=== PATIENT | female | born 1980 | race Caucasian/White ===

== ENCOUNTER 2016-08-22 16:03 | Inpatient (IN) | payer OTHER ==
[~2016-08-22] VITALS: Ht 185.4 cm; Wt 96.9 kg
[~2016-08-22 16:03] MED LIST: ASPI-973 PO; FOLI1TAB18 PO; IBUP-1827 PO; PNV1TABL9 PO
[2016-08-22 16:27] VITALS: BP 117/77; RESP 16; O2SAT 95
[2016-08-22 17:07] LABS: BASOPHILS % (AUTO) 0.1 % (0-3); EOSINOPHILS % (AUTO) 0 % (0-5); MONOCYTES % (AUTO) 6.3 % (4-12); Mean Corpuscular Hemoglobin 28.8 pg (27.0-35.0); Mean Corpuscular Volume 86.1 fL (81-100); NEUTROPHILS % (AUTO) 87.3 % (40-74); Platelet Count 335 bil/L (150-400)
[2016-08-22 17:29] LABS: Magnesium 1.6 mg/dL (1.6-2.6)
[2016-08-22] MEDS ORDERED: 0.9% Sodium Chloride 1,000 ML IV ONE ×2 (17:45→21:05)
[2016-08-22 17:59] LABS: APPEARANCE,URINE CLEAR (CLEAR,HAZY); COLOR,URINE DARK YELLOW (YELLOW); OCCULT BLOOD,URINE MODERATE (NEGATIVE); PH,URINE 5.5 (5.0-8.0); UROBILINOGEN,URINE NORMAL (NORMAL)
[2016-08-22 18:00] LABS: ICTOTEST,URINE POSITIVE (Negative)
[2016-08-22 18:02] VITALS: PULSE 108; RESP 18; O2SAT 98
--- NOTE | 2016-08-22 18:28 | ED.REPORT ---
HPI-Fever Date of Service Aug 22, 2016 ED Provider: Jarred Barahona MD Khloe is a 36 year old woman, currently 20wk 5 days gravid by Ultrasound, MTHFR, Developed chills last night while working at [employer], went home and continued to have chills, checked her temperature and was 101.3F oral. Contacted her Dr. Vang who said she needed to go to , while there they attempted to do a throat swab and she coughed up blood tinged sputum and patient reports that the attempt to get a throat swab had fank blood. Pt denies epistaxis. Has not had this before. Rt leg swelling greater than L leg over course of three weeks. Sore throat with odynophagia, some rhinorrhea, head ache since last night, No rashes, No dysuria. Has muscle aches all over. did not have flu shot this year. 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 Family History Mother had multiple blood clots, at 52. Father- DMII Smoking History Unknown if Ever Smoker Social History A1 as of 01/10/16 Other Social History: Good social support Ambulatory Status Independent Review of Systems Complete sys rev & neg: except as marked. Physical Exam General: Laying in bed, mildly uncomfortable HEENT: Normocephalic, atraumatic, EOMI grossly, oropharynx is obviously inflamed , unable to appreciate any lymphadenopathy in the cervical chains conjunctiva pink, mucous membranes moist, neck is supple. Cardiovascular: Tachycardic with regular rhythm, no clicks murmurs rubs, peripheral pulses 2/4 equal bilaterally Pulmonary: Clear to auscultation bilaterally, no W/R/R. Abdominal: Soft to palpation, bowel sounds present 4, no hepatosplenomegaly. Negative rebound. : Uterine fundus is palpable at level of umbilicus, heart rate 140s. No CVA tenderness Extremities: Bilateral lower extremity edema, no asymmetry, no tenderness. Neuro: Neurologically grossly intact, strength is equal bilaterally upper and lower extremities. MSK: Gait is normal, able to move extremities on their own volition, strength 5 out of 5 equal bilaterally to upper and lower extremities. Initial Vital Signs Vital Signs (First) Date Time Temp Pulse Resp B/P Pulse Ox O2 Delivery O2 Flow Rate FiO2 08/22/16 16:27 37.2 130 16 117/77 95 Room Air Initial VS: Reviewed, Vital signs abnormal (tachycardia) Interpretation & Diagnostics Bilateral duplex ultrasound lower extremities "no evidence of DVT of bilateral lower extremities." Lab Results Interpretation Result Diagram: 08/22/16 1658 08/22/16 1658 Test 08/22/16 16:58 08/22/16 17:37 White Blood Count 19.8th/mm3 (3.8-10.1) Red Blood Count 4.24mil/mm3 (3.90-5.20) Hemoglobin 12.2g/dL (12.0-15.6) Hematocrit 36.5% (35.0-46.0) Mean Corpuscular Volume 86.1fL (81-100) Mean Corpuscular Hemoglobin 28.8pg (27.0-35.0) Mean Corpuscular Hemoglobin Concent 33.4% (32.0-37.0) Red Cell Distribution Width 13.0% (12.3-15.4) Platelet Count 335bil/L (150-400) Neutrophils (%) (Auto) 87.3% (40-74) Lymphocytes (%) (Auto) 5.9% (14-46) Monocytes (%) (Auto) 6.3% (4-12) Eosinophils (%) (Auto) 0% (0-5) Basophils (%) (Auto) 0.1% (0-3) Sodium Level 133mEq/L (134-144) Potassium Level 4.2mEq/L (3.5-5.2) Chloride Level 99mEq/L (97-108) Carbon Dioxide Level 20mmol/L (18-29) Blood Urea Nitrogen 8mg/dL (6-20) Creatinine 0.73mg/dL (0.57-1.00) Estimat Glomerular Filtration Rate 128mL/min (>59) Glucose Level 92mg/dL (60-99) Lactic Acid Level 0.7mmol/L (0.4-2.0) Calcium Level 9.4mg/dL (8.5-10.1) Magnesium Level 1.6mg/dL (1.6-2.6) Total Bilirubin 0.3mg/dL (0.0-1.2) Aspartate Amino Transf (AST/SGOT) 19U/L (0-50) Alanine Aminotransferase (ALT/SGPT) 21U/L (0-32) Alkaline Phosphatase 66U/L (25-150) Total Protein 7.5g/dL (6.4-8.4) Albumin 3.5g/dL (3.4-5.0) Procalcitonin 0.10ng/mL (0.00-0.08) Hold Greene Top Tube Received (Received) Urine Color Dark yellow (YELLOW) Urine Appearance Clear (CLEAR,HAZY) Urine pH 5.5 (5.0-8.0) Urine Specific [place] 1.030 (1.003-1.035) Urine Protein Tracemg/dL (NEG,TRACE) Urine Glucose (UA) Negativemg/dL (NEGATIVE) Urine Ketones 40mg/dL (NEGATIVE) Urine Occult Blood Moderate (NEGATIVE) Urine Nitrite Negative (NEGATIVE) Urine Bilirubin Small (NEGATIVE) Urine Ictotest Positive (Negative) Urine Urobilinogen Normalmg/dL (NORMAL) Urine Leukocyte Esterase Trace (NEGATIVE) Urine RBC 11-50/hpf (0-2) Urine WBC 0-5/hpf (0-5) Urine Epithelial Cells Many/hpf (NONE-MOD) Urine Crystals None seen (NONE SEEN) Urine Bacteria Moderate/hpf (NONE-FEW) Urine Hyaline Casts None/lpf (NONE) Urine Granular Casts None seen (NONE SEEN) Urine Waxy Casts None seen (NONE SEEN) Urine Red Blood Cell Casts None seen (NONE SEEN) Urine White Blood Cell Casts None seen (NONE SEEN) Urine Mucus Present (None Seen) Urine Trichomonas None seen (NONE SEEN) Urine Yeast None (NONE SEEN) Urine Culture Reflexed Indicated Lab Results Interpretation: Urinary tract infection Hyponatremia Leukocytosis ECG Interpretation ECG Interpretation: Rate 118 Sinus tachycardia NC 139 QTC 459 No signs of acute infarct or ischemia. X-Ray Interpretation Xray Interpretation: IMPRESSION: No acute pulmonary process. Dictated by: Teressa Woodson M.D. on 08/22/2016 at 19:33 CT Chest Interpretation IMPRESSION: 1. Limited diagnostic exam secondary to injection timing. No central pulmonary embolism. Distal branches are unable to be evaluated. 2. Lungs are clear. Dictated by: Teressa Woodson M.D. on 08/22/2016 at 20:53 Interpretation / Wet Read by: Interpret - Radiologist Re-Eval/Medical Decision Med Decision/Clinical Course Patient was evaluated with concern for pulmonary embolism. Rapid strep and rapid flu and urgent care were negative, patient has no signs of hemoptysis here , she continues to be tachycardic, white count of nearly 20,000, urinalysis was suggestive urinary tract infection. CT angiogram of chest was suboptimal and cannot rule out peripheral pulmonary emboli, chest x-ray did not demonstrate any pneumonia or nodules. She continues to complain of having a sore throat, and head hurting which was relieved initially by Tylenol. Lower extremity ultrasound was performed and did not show any signs of DVT. Given her fever, elevated white count, urinalysis suggestive of infection, she was admitted for IV antibiotics and further evaluation for fever and leukocytosis. Consultation #1: Referral / Consult Name: Klaus Morris MD Consulted With: Hospitalist Tail Dogger: Accepts admit Consultation #2: Referral / Consult Name: Cheyanne Vang MD Consulted With: On-call physician Tail Dogger: Will see patient Note: OBGYN. Agrees with plan. Counseled Regarding: Diagnosis, Lab results, Need for admission Discharge & Departure Impression: Primary Impression: Urinary tract infection Urinary tract infection type: acute cystitis Hematuria presence: with hematuria Qualified Code: N30.01 - Acute cystitis with hematuria Additional Impressions: 20 weeks gestation of Hyponatremia Disposition: ADMITTED TO HOSPITAL Discharge Condition All VS Reviewed: Yes Condition: No Change Referrals: Roseanna Gibson (PCP) Attending Statement Seen and examined with Dr Briceno on 08/22. Agree with above. Do not feel further eval for PE is indicated at present given clear history of fever and infectious process as cause of tachycardia. copies to: Cheyanne Vang MD; Roseanna Gibson Noah M DO Aug 22, 2016 18:27 Jarred Barahona MD Aug 23, 2016 01:18
[2016-08-22 19:37] VITALS: PULSE 118; RESP 22; O2SAT 98
--- NOTE | 2016-08-22 19:38 | DRSVH ---
PROCEDURE: X-RAY CHEST, TWO VIEWS ([id number]) INDICATIONS: Hemoptysis TECHNIQUE: 2 views of the chest were acquired. COMPARISON: None. FINDINGS: Surgical changes and devices: None. Lungs and pleura: No pleural effusions or pneumothorax. Lungs are clear. Mediastinum: Mediastinal contours are normal. Heart size is normal. Bones and chest wall: No suspicious bony abnormalities. Soft tissues appear unremarkable. IMPRESSION: No acute pulmonary process. Dictated by: Teressa Woodson M.D. on 08/22/2016 at 19:33 Approved by: Teressa Woodson M.D. on 08/22/2016 at 19:37
[2016-08-22 20:52] VITALS: BP 121/72; PULSE 122; RESP 19; O2SAT 97
--- NOTE | 2016-08-22 21:01 | DRSVH ---
PROCEDURE: CT ANGIO CHEST PULMONARY EMBOLISM ([id number]) INDICATIONS: Tachycardia, Hemoptysis, , MTHFR mutation. TECHNIQUE: After the administration of intravenous contrast, 2 mm thick sections acquired from the pulmonary api wing to the posterior costophrenic angles. 3-dimensional maximum intensity projection (MIP) coronal a nd sagittal reformats were then acquired through the thorax. For radiation dose reduction, the follo wing was used: automated exposure control, adjustment of mA and/or kV according to patient size. COMPARISON: None. FINDINGS: Image quality: Injection timing is suboptimal for evaluation distal to the main pulmonary artery. Pulmonary arteries: Pulmonary arteries are normal in size, and demonstrate no intraluminal filling d efects to suggest central pulmonary embolism. Lungs and pleura: Lungs are clear. No pleural effusions or pneumothorax. Central and peripheral ai rways are patent. Mediastinum: Heart size is normal, without pericardial effusion. No mediastinal or hilar adenopathy . Thoracic aorta is normal in caliber and enhancement. Esophagus is normal in caliber, without hiat al hernia. Bones and chest wall: No suspicious bony lesions. Ribs and thoracic spine appear intact throughout. Thyroid gland is unremarkable as is. No axillary or supraclavicular adenopathy. Abdomen: Visualized upper abdominal solid organs appear normal in the early arterial phase of enhanc ement. IMPRESSION: 1. Limited diagnostic exam secondary to injection timing. No central pulmonary embolism. Distal branc hes are unable to be evaluated. 2. Lungs are clear. Dictated by: Teressa Woodson M.D. on 08/22/2016 at 20:53 Approved by: Teressa Woodson M.D. on 08/22/2016 at 20:59
[2016-08-22] MEDS ORDERED: Lactated Ringer's 1,000 ML IV ONE (21:05)
[2016-08-22] MEDS ORDERED: cefTRIAXone Inj 2,000 MG in Dextrose 5% Minibag Plus 50 ML IV ONE (21:15)
[2016-08-22] MEDS: Phenol 1.4% 177 mL Spray MUC_MEMBRM PRN (21:39)
[2016-08-22] MEDS: 0.9% Sodium Chloride 1,000 ML IV SCH (22:00)
[2016-08-22] MEDS ORDERED: 0.9% Sodium Chloride 1,000 ML IV SCH (22:07)
[2016-08-22] MEDS ORDERED: Polyethylene Glycol (PEG) 17 Gm Powder PO PRN (22:10)
[2016-08-22] MEDS ORDERED: Alum-Mag Hydrox-Simeth 30 mL Suspension PO PRN (22:10)
[2016-08-22] MEDS ORDERED: Ondansetron 2 mg/mL 2 mL Inj IVPUSH PRN (22:10)
[2016-08-22 22:42] VITALS: BP 121/72; PULSE 122; RESP 19; O2SAT 97
[2016-08-22 22:55] VITALS: BP 119/69; PULSE 117; RESP 16
--- NOTE | 2016-08-23 00:13 | NUR ---
Admit Pt admitted onto unit at 2250 via wheelchair from ED. Report given by MITCH Miranda. Pt A&Ox3, Pain 6/10 Headache but stated it was at a tolerable level. VSS with some tachycardia 116. Oriented pt to room, call light, etc.
[2016-08-23] MEDS ORDERED: Sodium Chloride LOK Flush 10 mL Syringe IVFLUSH SCH (00:30)
[2016-08-23] MEDS: 0.9% Sodium Chloride 1,000 ML IV SCH ×2 (01:27→03:53)
[2016-08-23] MEDS: Phenol 1.4% 177 mL Spray MUC_MEMBRM PRN ×2 (01:27→11:04)
--- NOTE | 2016-08-23 02:24 | PCM.HPMED ---
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 She states that she has felt very fatigued with increased low back pain for the past month or so, which she has been attributing to her . She states that she has had a sore throat for several days then last night developed a persistent cough, fever and chills. She contacted her ObGyn, Dr. Vang who referred her to Urgent Care. While at , an attempt was made to collect a throat swab when the patient coughed up blood tinged sputum. She denies prior episodes of hemoptysis or epistaxis and states that this has not happened since. Of note, she states that she is followed by [facility] at the [facility] due to her MTHFR gene mutation. However, other than a VSD noted on an recent ultrasound her has thus far been uneventful. She does report increased lower extremity swelling in the past few weeks that she states is worse on the left, chest pain with coughing, headache, and generalized malaise. She denies dysuria, hematuria, abdominal pain, nausea, vomiting, diarrhea or constipation. In the ED, vitals temp 37.2, BP 117/77, pulse 130, RR 16, SpO2 95% on room air. Labs: wbc 19.8, H/H 12.2/36.5, plts 335, sodium 133, potassium 4.2, chloride 99 , bicarb 20, BUN 8, creatinine 0.73, serum glucose 92, lactic acid 0.7. ECG showing sinus tachycardia with a rate of 118 and no signs of acute ischemia. CXR negative for acute process, CT chest with no evidence of PE however it was a suboptimal study cannot rule out peripheral pulmonary emboli . US of lower extremities with no evidence of DVT. She received 1L bolus of LR and 1L boluses of normal saline x2. Started on IV ceftriaxone. Review of Systems: A comprehensive review of systems was conducted with the patient and found to be negative except as above in the History of Present Illness. Allergies Coded Allergies: No Known Allergies (Verified , 01/30/16) Home Medications Aspirin 81 MG PO DAILY Folic Acid 1 MG PO DAILY Pnv Cmb#21/Iron/Folic Acid 1 EACH PO DAILY Ibuprofen 600 MG PO QID PRN For Pain PMH MTHFR gene mutation, clotting disorder . Surgical History Cholecystectomy Rhinoplasty for deviated septum Family History Mother had multiple blood clots, at 52. Father- DMII Social History Hx Alcohol Use: Yes Hx Substance Use: No Smoking Status: Never Smoker Living Arrangement: with Family Exam Vital Signs Vital Sign - Last Date Time Temp Pulse Resp B/P Pulse Ox O2 Delivery O2 Flow Rate FiO2 08/22/16 20:52 36.9 122 19 121/72 97 Room Air Exam General: Well-developed, well-nourished female lying in bed. in no acute distress. HEENT: Normocephalic, atraumatic, EOMI grossly, oropharynx erythematous without exudates, submandibular tenderness to palpation, no obvious lymphadenopathy, mucous membranes moist. Neck: Non-tender, no JVD/bruits or lymphadenopathy Cardiovascular: Tachycardic with regular rhythm, no murmurs, rubs, or gallops appreciated Pulmonary: Clear to auscultation bilaterally with no crackles, wheezes, or rhonchi. Normal respiratory effort. Abdomen: Bowel tones present. Soft, nontender, nondistended. No hepatosplenomegaly or masses appreciated. Extremities: Distal pulses equal/intact bilaterally, no cyanosis and trace non- pitting edema to just below the knee. Skin: Normal temperature, turgor, and texture; no rashes or ulcerations. Neurological: CN II-XII grossly intact. Normal muscle strength, tone, and bulk. No known gait impairment. Psychiatric: Normal mood and affect. Alert and oriented to person, place, and time. Lab and Diagnostics Labs Laboratory Tests Test 08/22/16 16:58 08/22/16 17:37 White Blood Count 19.8th/mm3 (3.8-10.1) Red Blood Count 4.24mil/mm3 (3.90-5.20) Hemoglobin 12.2g/dL (12.0-15.6) Hematocrit 36.5% (35.0-46.0) Mean Corpuscular Volume 86.1fL (81-100) Mean Corpuscular Hemoglobin 28.8pg (27.0-35.0) Mean Corpuscular Hemoglobin Concent 33.4% (32.0-37.0) Red Cell Distribution Width 13.0% (12.3-15.4) Platelet Count 335bil/L (150-400) Neutrophils (%) (Auto) 87.3% (40-74) Lymphocytes (%) (Auto) 5.9% (14-46) Monocytes (%) (Auto) 6.3% (4-12) Eosinophils (%) (Auto) 0% (0-5) Basophils (%) (Auto) 0.1% (0-3) Sodium Level 133mEq/L (134-144) Potassium Level 4.2mEq/L (3.5-5.2) Chloride Level 99mEq/L (97-108) Carbon Dioxide Level 20mmol/L (18-29) Blood Urea Nitrogen 8mg/dL (6-20) Creatinine 0.73mg/dL (0.57-1.00) Estimat Glomerular Filtration Rate 128mL/min (>59) Glucose Level 92mg/dL (60-99) Lactic Acid Level 0.7mmol/L (0.4-2.0) Calcium Level 9.4mg/dL (8.5-10.1) Magnesium Level 1.6mg/dL (1.6-2.6) Total Bilirubin 0.3mg/dL (0.0-1.2) Aspartate Amino Transf (AST/SGOT) 19U/L (0-50) Alanine Aminotransferase (ALT/SGPT) 21U/L (0-32) Alkaline Phosphatase 66U/L (25-150) Total Protein 7.5g/dL (6.4-8.4) Albumin 3.5g/dL (3.4-5.0) Procalcitonin 0.10ng/mL (0.00-0.08) Hold Greene Top Tube Received (Received) Urine Color Dark yellow (YELLOW) Urine Appearance Clear (CLEAR,HAZY) Urine pH 5.5 (5.0-8.0) Urine Specific [place] 1.030 (1.003-1.035) Urine Protein Tracemg/dL (NEG,TRACE) Urine Glucose (UA) Negativemg/dL (NEGATIVE) Urine Ketones 40mg/dL (NEGATIVE) Urine Occult Blood Moderate (NEGATIVE) Urine Nitrite Negative (NEGATIVE) Urine Bilirubin Small (NEGATIVE) Urine Ictotest Positive (Negative) Urine Urobilinogen Normalmg/dL (NORMAL) Urine Leukocyte Esterase Trace (NEGATIVE) Urine RBC 11-50/hpf (0-2) Urine WBC 0-5/hpf (0-5) Urine Epithelial Cells Many/hpf (NONE-MOD) Urine Crystals None seen (NONE SEEN) Urine Bacteria Moderate/hpf (NONE-FEW) Urine Hyaline Casts None/lpf (NONE) Urine Granular Casts None seen (NONE SEEN) Urine Waxy Casts None seen (NONE SEEN) Urine Red Blood Cell Casts None seen (NONE SEEN) Urine White Blood Cell Casts None seen (NONE SEEN) Urine Mucus Present (None Seen) Urine Trichomonas None seen (NONE SEEN) Urine Yeast None (NONE SEEN) Urine Culture Reflexed Indicated Microbiology 08/22/16 Blood Culture, Received Pending 08/22/16 Urine Culture, Received Pending Result Diagram: 08/22/16 1658 08/22/16 1658 X-Rays, CTs and MRIs X-RAY CHEST, TWO VIEWS IMPRESSION: No acute pulmonary process. Dictated by: Teressa Woodson M.D. on 08/22/2016 at 19:33 Approved by: Teressa Woodson M.D. on 08/22/2016 at 19:37 CT ANGIO CHEST PULMONARY EMBOLISM IMPRESSION: 1. Limited diagnostic exam secondary to injection timing. No central pulmonary embolism. Distal branches are unable to be evaluated. 2. Lungs are clear. Dictated by: Teressa Woodson M.D. on 08/22/2016 at 20:53 Approved by: Teressa Woodson M.D. 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 Admitted for further evaluation and management of sepsis secondary to UTI. 1. Sepsis, poa. Active -meets criteria with: 37.8C, HR 130, wbc 19.8 and suspected urinary source of infection. -sinus tachycardia on ECG, normal CXR and urinalysis consistent with infection. -lactic acid wnl, procalcitonin mildly elevated 0.10 -rapid strep/rapid flu negative at Urgent Care. -in the ED: s/p 1L bolus of LR, 1L bolus NSx2, 2g IV ceftriaxone -blood and urine cultures, pending -continue IVFs, ceftriaxone 2. Acute Urinary tract Infection, poa. Active. -UA findings consistent with infection -urine culture, pending -continue IVFs, antibiotics 3. Suspicion for Pulmonary embolism and DVT, poa. -pt reports L > R lower extremity swelling and one episode of hemoptysis. -CT angio was negative for PE, but considered suboptimal study due to timing of injection of contrast. -US of b/l lower extremities, negative for DVT. -continue home aspirin -DVT prophylaxis, subq heparin -due to suboptimal study, consider repeat CT angio for recurrent hemoptysis or persistent tachycardia despite fluid resuscitation. 4. Hx of MTHFR gene mutation, poa. Ongoing -mutation associated with hyperhomocysteinemia, which is a risk factor for VTE but more commonly associated with recurrent loss. -pt is 20wks , normal ultrasound in ED, Wafer Machine Operator aware and plan to see tomorrow -CT angio and lower ext US, as above. -continue home aspirin, folic acid and vitamins 5. Pharyngitis, poa. Active -rapid strep swab reportedly negative at Urgent Care -likely viral -continue supportive therapy -recommend outpatient follow as needed. PRN: Acetaminophen-fever/headache/mild/moderate pain Antiemetics, as needed Bowel regimen, as needed. Disposition: Patient admitted under observation status with expected length of stay < 2 midnights for severity of present symptoms and risk for adverse event. Pain Evaluation: Adequate Pain Control GI Prophylaxis: Not indicated VTE Prophylaxis Indicated: Meets Criteria for Anticoag Therapy VTE Prophylaxis: Sub-Q Heparin (Unfractionated) Resuscitation Status: CPR: Attempt Resuscitation Attending Statement The patient was seen and examined together with Dr. Lamas on 08/22 and I agree with the history, exam and plan as outlined in the note above. Nelly Lamas DO Aug 22, 2016 22:05 Klaus Morris MD Aug 23, 2016 06:17
[2016-08-23 03:47] VITALS: BP 115/64; PULSE 108; RESP 16; O2SAT 95
--- NOTE | 2016-08-23 05:14 | NUR ---
Temp Pt fluctuated between hot and cold throughout night, removing all blankets, then needing warm blankets. Throughout this time, she did not present with fever or sweating or clamminess of skin.
[2016-08-23 05:36] VITALS: PULSE 91
--- NOTE | 2016-08-23 06:28 | NUR ---
Chest Pain At 0604 pt c/o mid sternal chest pain rating 5-6 /10, SR at 88 per is technician, 12 Lead obtained showing Sinus Rhythm at 90, vitals taken Bp at 106/66, HR 89, 02 sats 99% on room air, given PRN Maalox, [address] Morris with order for one time Morphine 1mg, given, awaiting result at this time, continue to monitor.
[2016-08-23 06:42] LABS: BASOPHILS % (AUTO) 0.1 % (0-3); EOSINOPHILS % (AUTO) 0.3 % (0-5); MONOCYTES % (AUTO) 8.9 % (4-12); Mean Corpuscular Hemoglobin 28.7 pg (27.0-35.0); NEUTROPHILS % (AUTO) 75.8 % (40-74); Platelet Count 267 bil/L (150-400)
--- NOTE | 2016-08-23 06:42 | NUR ---
Morphine Response Pt reported feeling "drugged" immediately after morphine 1mg administered. Chest pain relieved, as well as headache and flank pain gone. Encouraged deep breathing. Monitored Vitals staying stable at BP 106/69 and HR 90. Keeping pt in bed until feeling steady, 1 person asst for next time out of bed.
[2016-08-23 08:00] VITALS: PULSE 93
[2016-08-23 08:30] VITALS: BP 112/74; PULSE 98; RESP 18; O2SAT 96
[2016-08-23] MEDS: Multivit-Miner-Folic Acid-Iron Tablet PO SCH (08:30)
--- NOTE | 2016-08-23 08:44 | DRSVH ---
PROCEDURE: US VENOUS LEG DUPLEX BILATERAL INDICATIONS: Hypercoag mutation, Tachycardic, , LE conchis TECHNIQUE: Real-time imaging, as well as color and pulse Doppler interrogation, were performed of the deep veins of both legs from the inguinal ligament to the popliteal fossa. COMPARISON: None. FINDINGS: The deep veins are normally compressible, and free of intraluminal thrombus. Color and pu lse Doppler demonstrate normal phasic intravascular flow. There is normal augmentation response to d istal compression maneuver. IMPRESSION: No deep venous thrombosis identified within either the left or right lower extremities. Dictated by: Morris NAQVI Interpreted: Flora eD León MD on 08/23/2016 at 8:43 Transcribed by: DALE on 08/23/2016 at 8:44 Approved by: Flora De León M.D. on 08/23/2016 at 9:33
[2016-08-23 12:45] VITALS: BP 112/70; PULSE 103; RESP 16; O2SAT 95
--- NOTE | 2016-08-23 14:05 | PCM.PNMED ---
Subjective Date of Service Aug 23, 2016 Subjective Patient was seen and examined at bedside today. Patient denies any shortness of breath, nausea, vomiting, diarrhea. Patient reports musculoskeletal chest pain. Patient reports dysuria but states that it has improved since admission. Overnight events: None Exam Vital Signs Vital Sign - Last Date Time Temp Pulse Resp B/P Pulse Ox O2 Delivery O2 Flow Rate FiO2 08/23/16 12:45 36.7 103 16 112/70 95 Room Air Intake and Output 08/22/16 08/22/16 08/23/16 Cumulative From/Thru 15:00 23:00 07:00 08/22/16 16:27 - 08/23/16 06:38 Intake Total 2000 ml 2000 ml Output Total 1900 ml 1900 ml Balance 2000 ml -1900 ml 100 ml Intake IV Total 2000 ml 2000 ml Output Urine Total 1900 ml 1900 ml Exam Physical Exam: GEN: Patient was awake, alert, responding appropriately to questions HEENT: Pupils equal round and reactive to light, extraocular eye muscles intact , Neck soft supple, trachea midline, nomocephalic/atraumatic CV: +S1/S2, regular rate and rhythm, no murmurs auscultated Respiratory: CTAB, no wheezes, rales, rhonchi GI: +bowel sounds x4, soft, compressible, nontender to palpation EXT: no clubbing, cyanosis, edema Neuro: Cranial nerves II-XII grossly intact Muscular skeletal: Right inhaled rib 4-6 Psych: mood and affect were appropriate IVs and Medications Medications Reviewed: Medications were reviewed in detail Lab and Diagnostics Result Diagram: 08/23/16 0610 08/23/16 0610 X-Rays, CTs and MRIs X-RAY CHEST, TWO VIEWS IMPRESSION: No acute pulmonary process. Dictated by: Teressa Woodson M.D. on 08/22/2016 at 19:33 Approved by: Teressa Woodson M.D. on 08/22/2016 at 19:37 CT ANGIO CHEST PULMONARY EMBOLISM IMPRESSION: 1. Limited diagnostic exam secondary to injection timing. No central pulmonary embolism. Distal branches are unable to be evaluated. 2. Lungs are clear. Dictated by: Teressa Woodson M.D. on 08/22/2016 at 20:53 Approved by: Teressa Woodson M.D. 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 Admitted for further evaluation and management of sepsis secondary to UTI. Sepsis secondary to UTI, present on admission -Patient meets sepsis criteria 37.8C, HR 130, wbc 19.8 on admission -Rapid flu negative at urgent care -Blood cultures pending -UA positive for infection -Urine culture currently no growth -Continue IV ceftriaxone Suspicion for Pulmonary embolism and DVT, poa. -CT angio was negative for PE, but considered suboptimal study due to timing of injection of contrast. -US of b/l lower extremities, negative for DVT. -Continue home aspirin Hx of MTHFR gene mutation, poa. Ongoing -Mutation associated with hyperhomocysteinemia, which is a risk factor for VTE but more commonly associated with recurrent loss. -CT angio and lower ext US, as above. 20 weeks gestation -Normal ultrasound in ED -MARINE ELECTRICIAN consulted -continue home aspirin, folic acid and vitamins Pharyngitis, poa. Active -rapid strep swab reportedly negative at Urgent Care, likely viral -continue supportive therapy -recommend outpatient follow as needed. Somatic dysfunction of the rib -Patient was complaining of chest pain secondary to rib 4 through 6 inhalation somatic dysfunction -Patient responded well to OMT with significant decrease in pain with BLT PRN: Acetaminophen-fever/headache/mild/moderate pain Antiemetics, as needed Bowel regimen, as needed. Disposition: Patient is currently progressing well and will most likely be discharged home tomorrow. GI Prophylaxis: Not indicated VTE Prophylaxis: Sub-Q Heparin (Unfractionated) Resuscitation Status: CPR: Attempt Resuscitation Shannon Guy DO Aug 23, 2016 14:05 Disposition: Patient admitted under observation status with expected length of stay < 2 midnights for severity of present symptoms and risk for adverse event. GI Prophylaxis: Not indicated VTE Prophylaxis: Sub-Q Heparin (Unfractionated) Resuscitation Status: CPR: Attempt Resuscitation Shannon Guy DO Aug 23, 2016 14:05
--- NOTE | 2016-08-23 16:45 | NUR ---
FHTs 162 at 1640 hrs. FBC RN here to check FHT.
--- NOTE | 2016-08-23 16:46 | NUR ---
Shift note Patient still complains of a sore throat. Did have a headache of 8/10 pain which resolved with Tylenol. FHTS to be done Q day. Voiding. I/V fluids Dc'd as patient is taking in adequate PO per MD orders.
[2016-08-23 20:30] VITALS: BP 103/60; PULSE 85; RESP 16; O2SAT 98
[2016-08-23] MEDS ORDERED: cefTRIAXone Inj 2,000 MG in Dextrose 5% Minibag Plus 50 ML IV SCH (21:00)
[2016-08-24 02:00] VITALS: BP 107/67; PULSE 85; RESP 16; O2SAT 97
--- NOTE | 2016-08-24 04:45 | NUR ---
Shift Note Assumed pt care at 1900, pt continues with intermittent IV ABO, SL otherwise, pt denies pain/discomfort, qhrly checks done, call light in reach.
[2016-08-24 06:00] VITALS: BP 107/69; PULSE 82; RESP 16; O2SAT 96
[2016-08-24 07:19] LABS: Mean Corpuscular Hemoglobin 28.7 pg (27.0-35.0); Mean Corpuscular Volume 87.3 fL (81-100)
--- NOTE | 2016-08-24 07:37 | NUR ---
Social Work: Screen D: Per EMR review, pt is a 36 year old female admitted for UTI, pyelonephritis. Pt is [facility]. PCP is OMAR Arias. NOK is pt's spouse, Shaji Millan. Advanced directives completed and on file. Readmit score is low, 0/8. Pt is a resident of [place] and lives with her . Pt is I with ADLs and has been I during admission. Pt is 20 weeks . OB is following for management of fetus. A: Pt who is I at baseline. P: Anticipate pt to discharge home with no social work needs; UTILITY SYSTEM OPERATOR to continue to follow if needs arise. AMAN Mack
[2016-08-24 08:00] VITALS: PULSE 93
[2016-08-24] MEDS: Multivit-Miner-Folic Acid-Iron Tablet PO SCH (08:38)
[2016-08-24 08:45] VITALS: BP 104/67; PULSE 93; RESP 16; O2SAT 95
--- NOTE | 2016-08-24 10:26 | PCM.CONSUR ---
Subjective Date of Service: Aug 24, 2016 History of Present Illness Ms. 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 Her right leg was more swollen than her left leg. She originally was seen at Urgent Care where they did a throat swab, and the rapid Strep test was negative. She coughed up light pink sputum after the throat swab. She was also tachycardic in the 120s, so she was sent to the emergency department. In the emergency department, her heart rate increased to 135 bpm. She had further work up for sepsis and possible PE. CT angiogram chest did not show evidence of a PE and bilateral leg ultrasound did not show evidence of a DVT. Urinalysis was concerning for a UTI. She was started on antibiotics. Her is complicated by MTHFR gene mutation, positive SSA antibody, and advanced maternal age. She is being followed by maternal medicine. labs: blood type A+, varicella and rubella immune, RPR and HIV nonreactive, negative hepatitis C, gonorrhea, and chlamydia, Pap smear negative , TSH within normal limits Today, she complains of mild bilateral flank pain but did have similar pain with previous pregnancies. She does not have fever, chills, nasal congestion, chest pain, dyspnea, nausea, vomiting, diarrhea, or dysuria. Her throat is no longer sore. She has an occasional non-productive cough. Her leg swelling has improved greatly. She can feel the baby move frequently. She states that they heard heart tones yesterday. No leakage of fluid. Reason for Consultation 20 weeks 4 days gestation Allergy Allergies: Coded Allergies: No Known Allergies (Verified , 01/30/16) Medications Aspirin (Aspirin) 81 Mg Tablet 81 MG PO DAILY (Reported) Last Taken: 81 MG on 08/22/16 0900 Cephalexin (Keflex) 500 Mg Capsule 500 MG PO DIRECTED Take 1 capsule twice per day for 7 days and then 1 capsule once per day thereafter. Prescribed by: GUILLERMINA HAYNES DO Folic Acid (Folic Acid) 1 Mg Tablet 1 MG PO DAILY (Reported) Last Taken: 1 MG on 08/22/16 0900 Ibuprofen (Ibuprofen) 600 Mg Tablet 600 MG PO QID PRN PRN For Pain Prescribed by: DIAMOND SALEEM MD Last Taken: 600 MG on 08/22/16 Pnv Cmb#21/Iron/Folic Acid ( Complete Caplet) 1 Each Tablet 1 EACH PO DAILY (Reported) Last Taken: 1 TABLET on 08/22/16 0900 Past Surgical History Surgeries: Yes (Gallbladder 2008, Rhinoplasty at 15) Patient/Family Past Surgical: Positive for:: Accept Blood Products?, Denies:: Anesthesia Reactions, Blood Transfusions Social History Hx Alcohol Use: Yes Hx Substance Use: No Hx Tobacco Use: No PMH HEENT History History of ENT Problems?: No Cardiovascular History Cardiovascular History: Positive for:: Edema (During ) Denies:: Cardiac Surgery Chest Pain Congestive Heart Failure Heart Murmur Hypertension Irregular Heartbeat Pacemaker Thrombophlebitis Respiratory History of Respiratory Problem: No Respiratory History: Denies:: Tuberculosis Neurological History Neurological History: Positive for:: Headaches Denies:: Alzheimer's Disease CVA Dementia Parkinson's Disease Seizures Gastrointestinal History HX of GI Problems?: Yes Gastrointestinal History: Positive for:: Heartburn Denies:: Diverticulitis Gastroesphageal Reflux Gastrointestinal Bleeding Hepatitis Hiatal Hernia Rectal Bleeding Genitourinary History Other Pertinent History?: History of genital herpes with one outbreak Female/Male History Reproductive History Female: Positive for: Currently ? (yes) Musculoskeletal History Hx Musculoskeletal Problems?: Yes Musculoskeletal History: Positive for:: Back Injury (Lumbar pain) Denies:: Joint Replacement Musculoskeletal Trauma Psycho Social History Hx of Psycho/Social Problems?: Yes Psycho Social History: Positive for:: Anxiety Hx Depression Denies:: Bipolar Disorder Suicide Attempt Other History Hx Any Other Health Problems?: Yes (MTHFR gene mutation, positive SSA antibody) Other History: Positive for:: Hospitalization Denies:: Cancer Thyroid Disease Diabetes: No Social History Hx Alcohol Use: YesHx Substance Use: No Smoking Status: Never Smoker Living Arrangement: with Family Family History PMH Family Member: Mother (MTHFR gene mutation and blood clots) Sibling(s) (MTHFR gene mutation carriers) Objective Exam Vital Signs & I/O Vital Sign- Last 8 Hours Date Time Temp Pulse Resp B/P Pulse Ox O2 Delivery O2 Flow Rate FiO2 08/24/16 06:00 36.9 82 16 107/69 96 Room Air 08/24/16 02:00 37.0 85 16 107/67 97 Room Air Intake and Output- Last 8 Hour 08/24/16 Cumulative From/Thru 07:00 08/22/16 16:27 - 08/24/16 04:25 Intake Total 405 ml 2405 ml Output Total 650 ml 3250 ml Balance -245 ml -845 ml Intake Oral 350 ml 350 ml IV Total 55 ml 2055 ml Output Urine Total 650 ml 3250 ml Lab & Micro Results Laboratory Tests Test 08/23/16 10:48 08/24/16 06:45 Troponin T 0.010ug/L (0.0-0.011) White Blood Count 9.3th/mm3 (3.8-10.1) Red Blood Count 3.62mil/mm3 (3.90-5.20) Hemoglobin 10.4g/dL (12.0-15.6) Hematocrit 31.6% (35.0-46.0) Mean Corpuscular Volume 87.3fL (81-100) Mean Corpuscular Hemoglobin 28.7pg (27.0-35.0) Mean Corpuscular Hemoglobin Concent 32.9% (32.0-37.0) Red Cell Distribution Width 13.1% (12.3-15.4) Platelet Count 271bil/L (150-400) Procalcitonin 0.09ng/mL (0.00-0.08) Microbiology 08/22/16 Blood Culture - Preliminary, Resulted NO GROWTH AFTER 24 HOURS 08/22/16 Urine Culture - Final, Complete Mixed Urogenital Yumi Result Diagram: 08/24/16 0645 08/23/16 0610 Review of Systems: Constitutional: Negative, except as otherwise mentioned in the history above. Ophthalmologic: Negative, except as otherwise mentioned in the history above. Cardiovascular: Negative, except as otherwise mentioned in the history above. Respiratory: Negative, except as otherwise mentioned in the history above. Gastrointestinal: Negative, except as otherwise mentioned in the history above. Genitourinary: Negative, except as otherwise mentioned in the history above. Musculoskeletal: Negative, except as otherwise mentioned in the history above. Neurological: Negative, except as otherwise mentioned in the history above. Psychiatric: Negative, except as otherwise mentioned in the history above. Hematologic/Lymphatic: Negative, except as otherwise mentioned in the history above. Allergic/Immunologic: Negative, except as otherwise mentioned in the history above. H&P Surgical Exam Exam General: Alert, Oriented X3, Cooperative, No Acute Distress HEENT: Within normal limits & unremarkable, EOMI, Other (Bilateral tender submandibular lymphadenopathy, mild pharyngeal erythema with 1+ tonsils bilaterally without exudates) Respiratory: Clear to Auscultation Cardiac: Exam Unremarkable, Regular Rate/Rhythm, No Murmurs/Rubs/Gallops, No C/ O Chest Pain Abdomen: Normal bowel sounds, Other (Gravid, uterine fundus is at about 1 cm above the umbilicus) Additional Information Extremities: Trace bilateral ankle edema Assessment & Plan Assessment 36 y/o woman at 20 weeks 4 days gestation with EDI 01/07/17 based on LMP , with a 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 She is followed by M. 20 weeks 4 days gestation - heart tones 162 bpm at 16:40 on 08/23/16 - movement is normal and no leakage of fluid -Continue care visits and following with M after discharge -Continue home aspirin, folic acid, and vitamins -OK to discharge home since WBC is now within normal limits and no longer tachycardic Sepsis secondary to UTI -Blood cultures show no growth to-date -UA positive for infection and urine culture grew mixed normal yumi -WBC improved today and is within normal limits -Recommend discontinuing IV antibiotics and transition to oral antibiotics for discharge. Consider discharging on Keflex 500 mg BID for 7 days and then Keflex 500 mg once daily thereafter. 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 -CT angio and lower ext US, as above. -Continue to follow with MFM as an outpatient Suspicion for Pulmonary embolism and DVT -CT angio was negative for PE, but considered suboptimal study due to timing of injection of contrast. Based on fever and elevated WBC, likely tachycardia was secondary to infection. -US of b/l lower extremities, negative for DVT. -Continue home aspirin VTE Prophylaxis: Sub-Q Heparin (Unfractionated) VTE Mechanical Devices: Intermittant Pneumatic CD Resuscitation Status: CPR: Attempt Resuscitation Attending Statement: The patient was seen and examined together with Guillermina Shields DO on and I agree with the history, exam and plan as outlined in the note above. Guillermina Haynes DO Aug 24, 2016 09:29 Cheyanne Vang MD Aug 30, 2016 19:21
[2016-08-24] MEDS ORDERED: CEPH-512 PO (10:47)
--- NOTE | 2016-08-24 11:38 | PCM.DIMED ---
Discharge Instructions Date of Service Aug 24, 2016 Dates of Hospitalization Aug 22, 2016 at 22:32 Discharge Diagnosis Discharge Diagnosis Sepsis secondary to UTI Chest pain secondary to rib somatic dysfunction Suspicion for PE/DVT ruled out History of MTHFR Rafal mutation Pharyngitis Diet Heart Healthy Activity No restrictions Call your provider Fever or Chills, Shortness of breath, Bleeding, Chest pain, Vomitting, Excessive diarrhea, Weakness (unilateral) Patient Instructions You have been prescribed Keflex and it has been recommended by AIRCRAFT REFUELER that you should take this medication twice a day for the remainder of your . Please make a follow-up appointment with your AIRCRAFT REFUELER and your primary care provider for further follow-up Follow-up Provider: Cheyanne Vang MD Follow-up with PCP in: 1 week (if an appointment has not really been made please call to schedule an appointment) Provider: Roseanna Gibson Follow-up in: 1 week (if an appointment has not already been made please call to schedule an appointment) Shannon Guy DO Aug 24, 2016 11:38
--- NOTE | 2016-08-24 11:40 | PCM.DC.MED ---
Discharge Summary Date of Service Aug 24, 2016 Dates of Hospitalization Date of Hospital Admission Aug 22, 2016 at 22:32 Date of Discharge: Aug 24, 2016 Providers: Admitting Physician: Klaus Morris MD Primary Care Physician: Roseanna Gibson Attending Physician: Klaus Morris MD Diagnosis at Time of Discharge Diagnosis at Time of Discharge Sepsis secondary to UTI Chest pain secondary to rib somatic dysfunction Suspicion for PE/DVT ruled out History of MTHFR Rafal mutation Pharyngitis Procedures XRay, CTs & MRIs X-RAY CHEST, TWO VIEWS IMPRESSION: No acute pulmonary process. Dictated by: Teressa Woodson M.D. on 08/22/2016 at 19:33 Approved by: Teressa Woodson M.D. on 08/22/2016 at 19:37 CT ANGIO CHEST PULMONARY EMBOLISM IMPRESSION: 1. Limited diagnostic exam secondary to injection timing. No central pulmonary embolism. Distal branches are unable to be evaluated. 2. Lungs are clear. Dictated by: Teressa Woodson M.D. on 08/22/2016 at 20:53 Approved by: Teressa Woodson M.D. 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 She states that she has felt very fatigued with increased low back pain for the past month or so, which she has been attributing to her . She states that she has had a sore throat for several days then last night developed a persistent cough, fever and chills. She contacted her ObGyn, Dr. Vang who referred her to Urgent Care. While at , an attempt was made to collect a throat swab when the patient coughed up blood tinged sputum. She denies prior episodes of hemoptysis or epistaxis and states that this has not happened since. Of note, she states that she is followed by [facility] at the [facility] due to her MTHFR gene mutation. However, other than a VSD noted on an recent ultrasound her has thus far been uneventful. She does report increased lower extremity swelling in the past few weeks that she states is worse on the left, chest pain with coughing, headache, and generalized malaise. She denies dysuria, hematuria, abdominal pain, nausea, vomiting, diarrhea or constipation. In the ED, vitals temp 37.2, BP 117/77, pulse 130, RR 16, SpO2 95% on room air. Labs: wbc 19.8, H/H 12.2/36.5, plts 335, sodium 133, potassium 4.2, chloride 99 , bicarb 20, BUN 8, creatinine 0.73, serum glucose 92, lactic acid 0.7. ECG showing sinus tachycardia with a rate of 118 and no signs of acute ischemia. CXR negative for acute process, CT chest with no evidence of PE however it was a suboptimal study cannot rule out peripheral pulmonary emboli . US of lower extremities with no evidence of DVT. She received 1L bolus of LR and 1L boluses of normal saline x2. Started on IV ceftriaxone. Hospital Course 36 y/o female, currently 20wks , with a history of an inherited thrombophilia disorder due to a MTHFR gene mutation who was referred to the ED from Urgent Care after an episode of hemoptysis. Admitted for further evaluation and management of sepsis secondary to UTI. Patient was admitted as she met sepsis criteria secondary to UTI. The patient responded well to IV ceftriaxone. MONEY EXAMINER was consulted and did not find any abnormalities at this time other than the already diagnosed VSD. It is felt that the patient should continue on Keflex twice a day for the rest of the as discussed with Dr. Tapia rotating with MONEY EXAMINER. The patient was given a note for work until Saturday after the patient has a follow-up appointment with her PCP. Patient has been encouraged to follow up also with her MONEY EXAMINER. Upon admission there were some significant concerns that the patient may have a DVT. As this patient has a significant family history of mother dying from a DVT a CT angiogram and ultrasound of the lower extremities were performed and found to be negative for any signs of DVT or PE.. The patient is being discharged home in stable condition Please see below for hospital course: Sepsis secondary to UTI, present on admission -Patient meets sepsis criteria 37.8C, HR 130, wbc 19.8 on admission -Rapid flu negative at urgent care -Blood cultures pending -UA positive for infection -Urine culture currently no growth -Continue IV ceftriaxone Suspicion for Pulmonary embolism and DVT, poa. -CT angio was negative for PE, but considered suboptimal study due to timing of injection of contrast. -US of b/l lower extremities, negative for DVT. -Continue home aspirin Hx of MTHFR gene mutation, poa. Ongoing -Mutation associated with hyperhomocysteinemia, which is a risk factor for VTE but more commonly associated with recurrent loss. -CT angio and lower ext US, as above. 20 weeks gestation -Normal ultrasound in ED -MONEY EXAMINER consulted -continue home aspirin, folic acid and vitamins Pharyngitis, poa. Active -rapid strep swab reportedly negative at Urgent Care, likely viral -continue supportive therapy -recommend outpatient follow as needed. Somatic dysfunction of the rib -Patient was complaining of chest pain secondary to rib 4 through 6 inhalation somatic dysfunction -Patient responded well to OMT with significant decrease in pain with BLT PRN: Acetaminophen-fever/headache/mild/moderate pain Antiemetics, as needed Bowel regimen, as needed. Exam Vital Signs (Last) Date Time Temp Pulse Resp B/P Pulse Ox O2 Delivery O2 Flow Rate FiO2 08/24/16 08:45 36.5 93 16 104/67 95 Room Air Exam Physical Exam: GEN: Patient was awake, alert, responding appropriately to questions HEENT: Pupils equal round and reactive to light, extraocular eye muscles intact , Neck soft supple, trachea midline, nomocephalic/atraumatic CV: +S1/S2, regular rate and rhythm, systolic murmur auscultated Respiratory: CTAB, no wheezes, rales, rhonchi GI: +bowel sounds x4, soft, compressible, nontender to palpation EXT: no clubbing, cyanosis, edema Neuro: Cranial nerves II-XII grossly intact Psych: mood and affect were appropriate Test 08/22/16 16:58 08/22/16 17:37 08/23/16 06:10 08/23/16 10:48 Lactic Acid Level 0.7mmol/L (0.4-2.0) Magnesium Level 1.6mg/dL (1.6-2.6) Total Bilirubin 0.3mg/dL (0.0-1.2) Aspartate Amino Transf (AST/SGOT) 19U/L (0-50) Alanine Aminotransferase (ALT/SGPT) 21U/L (0-32) Alkaline Phosphatase 66U/L (25-150) Total Protein 7.5g/dL (6.4-8.4) Albumin 3.5g/dL (3.4-5.0) Hold Greene Top Tube Received (Received) Urine Color Dark yellow (YELLOW) Urine Appearance Clear (CLEAR,HAZY) Urine pH 5.5 (5.0-8.0) Urine Specific [place] 1.030 (1.003-1.035) Urine Protein Tracemg/dL (NEG,TRACE) Urine Glucose (UA) Negativemg/dL (NEGATIVE) Urine Ketones 40mg/dL (NEGATIVE) Urine Occult Blood Moderate (NEGATIVE) Urine Nitrite Negative (NEGATIVE) Urine Bilirubin Small (NEGATIVE) Urine Ictotest Positive (Negative) Urine Urobilinogen Normalmg/dL (NORMAL) Urine Leukocyte Esterase Trace (NEGATIVE) Urine RBC 11-50/hpf (0-2) Urine WBC 0-5/hpf (0-5) Urine Epithelial Cells Many/hpf (NONE-MOD) Urine Crystals None seen (NONE SEEN) Urine Bacteria Moderate/hpf (NONE-FEW) Urine Hyaline Casts None/lpf (NONE) Urine Granular Casts None seen (NONE SEEN) Urine Waxy Casts None seen (NONE SEEN) Urine Red Blood Cell Casts None seen (NONE SEEN) Urine White Blood Cell Casts None seen (NONE SEEN) Urine Mucus Present (None Seen) Urine Trichomonas None seen (NONE SEEN) Urine Yeast None (NONE SEEN) Urine Culture Reflexed Indicated Neutrophils (%) (Auto) 75.8% (40-74) Lymphocytes (%) (Auto) 14.7% (14-46) Monocytes (%) (Auto) 8.9% (4-12) Eosinophils (%) (Auto) 0.3% (0-5) Basophils (%) (Auto) 0.1% (0-3) Sodium Level 136mEq/L (134-144) Potassium Level 4.1mEq/L (3.5-5.2) Chloride Level 106mEq/L (97-108) Carbon Dioxide Level 17mmol/L (18-29) Blood Urea Nitrogen 6mg/dL (6-20) Creatinine 0.58mg/dL (0.57-1.00) Estimat Glomerular Filtration Rate 168mL/min (>59) Glucose Level 90mg/dL (60-99) Calcium Level 8.5mg/dL (8.5-10.1) Troponin T 0.010ug/L (0.0-0.011) Test 08/24/16 06:45 White Blood Count 9.3th/mm3 (3.8-10.1) Red Blood Count 3.62mil/mm3 (3.90-5.20) Hemoglobin 10.4g/dL (12.0-15.6) Hematocrit 31.6% (35.0-46.0) Mean Corpuscular Volume 87.3fL (81-100) Mean Corpuscular Hemoglobin 28.7pg (27.0-35.0) Mean Corpuscular Hemoglobin Concent 32.9% (32.0-37.0) Red Cell Distribution Width 13.1% (12.3-15.4) Platelet Count 271bil/L (150-400) Procalcitonin 0.09ng/mL (0.00-0.08) Discharge Medications Discharge Medications Aspirin (Aspirin) 81 Mg Tablet 81 MG PO DAILY (Reported) Cephalexin (Keflex) 500 Mg Capsule 500 MG PO DIRECTED Take 1 capsule twice per day for 7 days and then 1 capsule once per day thereafter. Prescribed by: DAWN CAMERON DO Folic Acid (Folic Acid) 1 Mg Tablet 1 MG PO DAILY (Reported) Pnv Cmb#21/Iron/Folic Acid ( Complete Caplet) 1 Each Tablet 1 EACH PO DAILY (Reported) As needed Ibuprofen (Ibuprofen) 600 Mg Tablet 600 MG PO QID PRN PRN For Pain Prescribed by: DIAMOND SALEEM MD Followup Plan Discharge Diet: Heart Healthy Discharge Activity: No restrictions Patient Instructions You have been prescribed Keflex and it has been recommended by MONEY EXAMINER that you should take this medication twice a day for the remainder of your . Please make a follow-up appointment with your MONEY EXAMINER and your primary care provider for further follow-up Follow-up Provider: Cheyanne Vang MD Follow-up with PCP in: 1 week (if an appointment has not really been made please call to schedule an appointment) Provider: Roseanna Gibson Follow-up in: 1 week (if an appointment has not already been made please call to schedule an appointment) Time spent Greater than 35 minutes copies to: Cheyanne Vang MD; Roseanna Gibson Precious L DO Aug 24, 2016 11:40
--- NOTE | 2016-08-24 14:33 | NUR ---
Discharge Patient discharged to home with family. Discharge instructions discussed with patient as well as follow up visits. Patient received prescription hard copy. I/ V dc'd intact. FMLA paperwork and note for work given. Patient walked form the unit with her family.
== END 2016-08-24 14:10 | disposition home or self-care (01) | DRG 781 ==
LOC: SED 16:03 → OBSVTOIN 22:32 → MOC 22:32
PROVIDERS: ADMIT Hospitalist; ATTEND Hospitalist
DX: O98.812 Other maternal infectious and parasitic diseases complicating pregnancy, second trimester (principal); O23.42 Unspecified infection of urinary tract in pregnancy, second trimester; E72.12 Methylenetetrahydrofolate reductase deficiency; O99.282 Endocrine, nutritional and metabolic diseases complicating pregnancy, second trimester; M99.08 Segmental and somatic dysfunction of rib cage; O99.512 Diseases of the respiratory system complicating pregnancy, second trimester; J02.9 Acute pharyngitis, unspecified; O09.522 Supervision of elderly multigravida, second trimester; Z79.82 Long term (current) use of aspirin; Z3A.20 20 weeks gestation of pregnancy

== ENCOUNTER 2016-10-05 06:35 | Emergency (ER) | payer OTHER ==
[~2016-10-05] VITALS: Ht 185.4 cm; Wt 97.7 kg
[~2016-10-05 06:35] MED LIST changes: +CEPH-512 PO
[2016-10-05 06:37] VITALS: PULSE 82; RESP 16; O2SAT 99
--- NOTE | 2016-10-05 07:29 | ED.REPORT ---
HPI-Extremity Problem Lower Date of Service October 05, 2016 ED Provider: Emily Ayala MD Patient is a 36year old , currently 27 weeks female with history of MTHFR Rafal mutation who presents to [facility] ED complaining of right leg pain and swelling. Patient reports symptoms started three days ago with right upper thigh bruising that traveled down the leg. Last night, while at work she noticed pain at her right calf muscle and mild swelling. She also reports her right lower leg feels warmer to touch compared to her left leg. Patient reports family history of blood clots. Here mother at a young age from cardiac embolism. Otherwise, patient states that her is going well and she has no other complains. Nursing Notes Stated Complaint: POSS BLOOD CLOT IN RT LEG Chief Complaint: Extremity Trauma Nursing Notes Reviewed: Yes Allergies: Coded Allergies: No Known Allergies (Verified , 01/30/16) Scheduled Aspirin (Aspirin) 81 Mg Tablet 81 MG PO DAILY Cephalexin (Keflex) 500 Mg Capsule 500 MG PO DIRECTED Take 1 capsule twice per day for 7 days and then 1 capsule once per day thereafter. Folic Acid (Folic Acid) 1 Mg Tablet 1 MG PO DAILY Pnv Cmb#21/Iron/Folic Acid ( Complete Caplet) 1 Each Tablet 1 EACH PO DAILY Scheduled PRN Ibuprofen (Ibuprofen) 600 Mg Tablet 600 MG PO QID PRN PRN For Pain General Time Seen by MD: 06:55 Chief Complaint Other (Right lower extremity pain and swelling ) Hx Obtained From: Patient Arrived By: Walk-in Onset Occurred: 3 days ago Context of Onset: Other (Patient is 27 week preagnant ) Symptom Duration: Since onset Location: : Leg right Quality: Aching, Cramping, Fullness, Heaviness Severity: Current: Mild Severity: Maximum: Mild Pertinent Negative: Exacerbated by nothing, Relieved by nothing Immunizations: All up to date Recent Healthcare: Recent doctor visit Risk-Extremity Prob Lower Well's Criteria for DVT Local tend d-vein sys (1) Well's DVT Score: 1-2 pts (mod risk 33%) Past Medical History Past Medical History MHTFR gene mutation causing thrombophilia clotting disorder Past Surgical History Cholestectomy 27yo rhinoplasty at 15yo for deviated septum. Family History Mother had multiple blood clots, at 52. Father- DMII Smoking History Never Smoker Social History A1 as of 01/10/16 Alcohol Use: Denies alcohol use Other Social History: Good social support Ambulatory Status Independent Review of Systems Basic Review of Systems Eyes: Vision NL, No discharge ENT: Hearing NL, No pain, No nasal congestion, No pharyngeal pain Respiratory: No shortness of breath, No cough, No wheeze Cardiovascular: No chest pain, No dyspnea on exertion, No orthopnea, No parox noct dyspnea, No palpitations GI: No abdominal pain, No anorexia, No nausea, No vomiting : No dysuria, No frequency Hematologic: No bleeding, No bruising Endocrine: No cold intolerance, No heat intolerance, No weight gain, No weight loss Allergy / Immune: No allergy Psychiatric: Normal thought content Constitutional: Denies: Chills, Fatigue, Fever, Malaise Musculoskeletal: Reports: Extremity pain (right), Extremity swelling Skin: Denies Rash Neurologic: Denies: Headache, Lightheaded, Numbness, Problem walking Respiratory: Denies: Dyspnea on exertion Cardiovascular: Denies: Chest pain, Palpitations GI: Denies: Abdominal pain, Nausea, Vomiting Female: Reports: (27 weeks) Physical Exam Initial Vital Signs Vital Signs (First) Date Time Temp Pulse Resp B/P Pulse Ox O2 Delivery O2 Flow Rate FiO2 10/05/16 06:37 36.8 82 16 99 Room Air 10/05/16 07:38 115/66 Initial VS: Reviewed, Vital signs normal General/Constitutional: Well-developed, Well-nourished Head / Eyes: Atraumatic, Normocephalic, PERRL ENT: Mucous membranes moist, Conjunctiva normal, No scleral icterus Neck: Supple, Non-tender, Full range of motion Respiratory: Breath sounds normal, Clear to auscultation, No respiratory distress Cardiovascular: Regular rate & rhythm, Heart sounds normal, Intact distal pulses Abdomen / GI: Soft, Non-tender, No guarding, No rebound Back: No CVA tenderness Lymphatic: No lymphadenopathy Upper Extremities: Vascular intact, Neuro intact, No swelling, No tenderness Skin: Warm, Dry, No cyanosis Neurologic: Alert, Oriented, Nonfocal Psychiatric: Mood/affect normal, Behavior normal, Normal thought content Lower Extremity / Pelvis / MS: Full range of motion, No erythema Right Leg / Calf: Positive: Ecchymosis present (distal medial calf, mild varicose veins on posteriior thigh and calf muscle ), Swelling present... (Mild ), Tenderness present... (Mild) Color / Condition: Positive: Lesion present... (Purple) Rash / Lesion Notes: Bruising present on distal medial calf, right lower extremity Multiple spider veins throughout Gravid abdomen : Positive: Exam deferred Interpretation & Diagnostics Lab Results Interpretation Lab Results Interpretation: u/s: no DVT in either leg. Right leg with significant varicosities but no clot Re-Eval/Medical Decision Med Decision/Clinical Course This is a 36 year old female, currently 27 weeks , with history of MTHFR Rafal mutation presenting to ED with right lower leg tenderness and swelling x 3 days. US of bilateral lower extremities revealed no evidence of deep venous thrombosis bilaterally. There are mid-distal thigh lateral venous varicosities. Results were discussed with the patient. She was given a prescription for compression stockings. She was discharged in a stable condition. Severity: Non life-threatening Diagnosis Appears: Evident Counseled Regarding: Diagnosis, Lab results, Need for follow-up, When/why to return to ED Discharge & Departure Shift Change Sign-Out Response to Therapy: Improved Additonal Information: Patient received Tylenol, 650 mg PO for pain relief. Impression: Primary Impression: Varicose vein of leg Disposition: Home Discharge Condition Condition: Stable Additional Instructions: Thank you for seeking care at Emergency Department today. Your work up today showed that you do not have deep vein thrombosis (DVT). You have some varicose veins in you right lower leg. We will give you a prescription for compression stockings. You should try wearing them as often as you can, but especially when you are at work walking/standing all day long. They steadily squeeze your legs, helping veins and leg muscles move blood more efficiently. You can buy them at most pharmacies and medical supply stores. You can also try to elevate your legs after work for 20-30 minutes and try to avoid long periods of standing or sitting. Please return to Emergency Department if your symptoms worsen. Thank you for letting us partake in your care today. Referrals: Roseanna Gibson (PCP) EDSupervising Provider for APC: Emily Ayala MD Attending Statement pt seen and examined was seen in OB first with heart tones noted and documented concerned with DVT and increasing leg pain R>L and known clotting genetic defect u/s shows no clots rec graduated compression hose for pregancy, rx written agree with above copies to: Roseanna iGbson Oksana S DO October 05, 2016 07:28 Emily Ayala MD October 05, 2016 08:12
[2016-10-05 07:38] VITALS: BP 115/66; PULSE 79; RESP 16; O2SAT 98
--- NOTE | 2016-10-05 08:36 | DRSVH ---
PROCEDURE: US VENOUS REFLUX DPLX BILAT INDICATIONS: RLE pain/swelling, h/o MTHFR TECHNIQUE: Real time scanning was performed of the lower extremity venous system, with imaging docum entation, as well as Color and pulse Doppler interrogation. COMPARISON: None. FINDINGS: RIGHT LOWER EXTREMITY: The deep veins are normally compressible, and free of intraluminal thrombus. Color and pulse Doppler demonstrate normal intravascular flow. There is normal augmentation with di stal compression maneuver. There is reflux greater than 0.5 seconds in the anterior accessory saphenous vein. Elsewhere, no refl ux. Multiple mid-distal thigh lateral venous varicosities are present. No evidence of superficial thrombophlebitis . LEFT LOWER EXTREMITY: The deep veins are normally compressible, and free of intraluminal thrombus. Color and pulse Doppler demonstrate normal intravascular flow. There is normal augmentation with dis yon compression maneuver. No evidence of varicosities or reflux IMPRESSION: No evidence of deep venous thrombosis bilaterally. Right lower extremity venous insufficiency. Dictated by: Alejandro Lopez M.D. on 10/05/2016 at 8:31 Approved by: Alejandro Lopez M.D. on 10/05/2016 at 8:35
[2016-10-05 09:15] VITALS: BP 131/79; PULSE 81; RESP 20; O2SAT 98
== END 2016-10-05 09:17 | disposition home or self-care (01) ==
LOC: SED 06:35
DX: O22.02 Varicose veins of lower extremity in pregnancy, second trimester (principal); E72.12 Methylenetetrahydrofolate reductase deficiency; Z3A.27 27 weeks gestation of pregnancy; Z79.82 Long term (current) use of aspirin